=== PATIENT | male | born 1980 | race Caucasian/White ===

== ENCOUNTER 2021-04-14 11:25 | Emergency (ER) | payer MEDICAID, SELFPAY ==
[2021-04-14 11:53] VITALS: BP 154/91; PULSE 110; RESP 18; TEMP 37.2; O2SAT 95
--- NOTE | 2021-04-14 14:32 | W.ED.WOUNDLC ---
HPI - Wound/Laceration General: Chief Complaint: Wound/Laceration Stated Complaint: Right Hand Laceration Time Seen by Provider: 04/14/21 14:19 Source: patient Mode of arrival: ambulatory Limitations: no limitations History of Present Illness: HPI narrative: Patient is a 40-year-old male who presents to ED today with complaints of a right hand laceration that he sustained while moving a refrigerator. Patient states he cut it on a piece of metal. Last tetanus was within 5 years. Patient states that he irrigated it copiously before arrival. Onset (ago): hour(s) Extremity Location: Right: hand Place: work Patient tetanus UTD: Yes Context: accidental Associated symptoms: Reports no associated symptoms Treatments prior to arrival: other (Irrigation) Review of Systems Skin/Breast: Reports: other (Laceration to palm of right hand) Neuro: Denies: numbness in extremities or sensory changes Physical Exam Const: COMMON NORMALS: no acute distress and no limitations GENERAL APPEARANCE: anxious NUTRITIONAL APPEARANCE: overweight Extremity: OTHER: Patient has a 3.0 cm laceration to the distal palm of his right hand. There is no tendon involvement. Patient maintains full range of motion of his wrist and digits. Sensory intact. Patient is EXTREMELY anxious stated he has a huge needle phobia and asks we not suture if possible. Neuro: COMMON NORMALS: moves all extremities, no focal motor deficits and no sensory deficits noted Skin: NARRATIVE SKIN EXAM: See extremity assessment for pertinent skin findings Procedures Laceration Laceration 1: Site: hand Side (If applicable): right Size (cm): 3.0 Description: linear Depth: simple, single layer Local Anesthetic: lidocaine 1% and with epi Amount of anesthesia used (mL): 2.0 Pre-repair: wound explored and irrigated extensively Skin layer closed with: nylon Size (cm): 4-0 Number of sutures: 4 Technique: simple, interrupted Course Vital Signs: Vital signs: Vital Signs Temperature 99 F 04/14/21 11:53 Pulse Rate 110 H 04/14/21 11:53 Respiratory Rate 18 04/14/21 11:53 Blood Pressure 154/91 04/14/21 11:53 Pulse Oximetry 95 04/14/21 11:53 MDM - Wound/Laceration MDM Narrative: Medical decision making narrative: Laceration was gaping too much for me to recommend skin adhesive or Steri-Strips. I did recommend suturing. Again patient was extremely anxious and I spent an extended amount of time counseling and speaking to patient trying to calm him just to even provide local anesthetic. 4 sutures were able to be placed but he refused any others so wound was not fully closed. I was able to irrigate wound. Discharge Plan Discharge Patient Disposition: Home Clinical Impression: Laceration of right hand Qualifiers: Encounter type: initial encounter Foreign body presence: without foreign body Qualified Code(s): S61.411A - Laceration without foreign body of right hand, initial encounter Condition: Stable Discharge Orders: Discharge ED (Routine); Ordered 04/14/21 Ordered By: Bernice Santana Patient Instructions: Suture Care (ED), Laceration (ED) Activity Restrictions/Additional Instructions: Keep wound/laceration clean with warm soap and water twice daily. Monitor for signs of infection such as redness, swelling, increased pain, or drainage. Please seek medical re-evaluation if these occur. If you received sutures today these will need to be removed (unless you were told by the provider that they are absorbable). The provider should have discussed with you the length of time until removal-7 DAYS. You may return to the emergency department for this service. If your wound was closed with Steri-Strips or glue/adhesive these will fall off within the next week or so. Coding Level of Care Code ED Supervisor Microwave for Shawn Lee
[2021-04-14 16:38] VITALS: BP 146/69; PULSE 89; RESP 18; O2SAT 97
== END 2021-04-14 16:38 | disposition home or self-care (01) ==
PROVIDERS: Emergency Provider Physician Assistant
DX: S61.411A Laceration without foreign body of right hand, initial encounter (principal); W26.8XXA Contact with other sharp object(s), not elsewhere classified, initial encounter
CPT/HCPCS: 12002; 99282; A6446

== ENCOUNTER → 2021-08-28 10:50 | Outpatient (BNVA) | payer MEDICAID, SELFPAY | PROVIDERS: Visit Provider Nurse Practitioner Family | DX: Z20.822 Contact with and (suspected) exposure to COVID-19 (principal); Z20.828 Contact with and (suspected) exposure to other viral communicable diseases | CPT/HCPCS: 87635 ==

== ENCOUNTER 2021-11-01 03:32 | Emergency (ER) | payer MEDICAID, SELFPAY ==
[2021-11-01 03:33] VITALS: BP 151/98; PULSE 122; RESP 22; TEMP 36.3; O2SAT 94; BMI 28.7
--- NOTE | 2021-11-01 03:36 | CTR_ITS ---
PROCEDURE INFORMATION: Exam: CT Head Without Contrast Exam date and time: 11/01/2021 3:36 AM Age: 41 years old Clinical indication: Patient HX: Seizure this a. M. History of prior seizures. TECHNIQUE: Imaging protocol: Computed tomography of the head without contrast. Radiation optimization: All CT scans at this facility use at least one of these dose optimization techniques: automated exposure control; mA and/or kV adjustment per patient size (includes targeted exams where dose is matched to clinical indication); or iterative reconstruction. COMPARISON: CT head wo con* [id number] 02/17/2016 9:54 AM RADIATION DOSE METRICS: Total DLP (mGy-cm): 669.02 FINDINGS: Brain: Normal. No hemorrhage. Unremarkable white matter. No mass effect. Cerebral ventricles: No ventriculomegaly. Paranasal sinuses: Mild left maxillary sinus disease. Mastoid air cells: Visualized mastoid air cells are well aerated. Bones/joints: Unremarkable. No acute fracture. Soft tissues: Unremarkable. CT/CT head wo con* [id number] IMPRESSION: 1. Mild left maxillary sinus disease. 2. No acute intracranial findings.
--- NOTE | 2021-11-01 03:36 | W.ED.SEIZURE ---
HPI - Seizure General: Chief Complaint: Seizure Stated Complaint: seizure Time Seen by Provider: 11/01/21 03:36 Source: patient and EMS Mode of arrival: EMS Limitations: no limitations History of Present Illness: HPI Narrative: 41-year-old male has a history of seizures states he had a witnessed seizure tonight roughly an hour ago. He had fell on the floor to his head EMS states when they arrived he was still postictal but he is now awake and alert answering all my question appropriately states he is a mild headache denies any neck pain denies any worsening improving factors. He states that he believes that he did miss his Keppra dose today. Associated symptoms: Deny chest pain, chills or fever(s) Review of Systems Const: Denies: fever(s), chills, body aches or change in appetite Eyes: Denies: blurry vision or eye discomfort ENMT: Denies: throat pain or dental pain Card: Denies: chest pain Resp: Denies: dyspnea GI: Denies: abdominal pain, nausea, vomiting or diarrhea : Denies: dysuria Musc: Denies: neck pain or back pain Skin/Breast: Denies: rash Neuro: Reports: seizure-like activity Psych: Denies: depression Jose Luis/Lymph: Denies: easy bruising All/Imm: Denies: urticaria PFSH ED PFSH: Medical History Arthritis Migraine Seizures Family History (Updated 11/01/21 @ 03:37 by Ana Meza MD) Other Diabetes Physical Exam Const: COMMON NORMALS: no acute distress, patient oriented x3 and healthy appearing HENMT: COMMON NORMALS: normocephalic and atraumatic HEAD & SCALP: normocephalic and atraumatic Eye: COMMON NORMALS: Equal, round and reactive pupils present and EOMs intact bilaterally PUPIL: Yes Equal, round and reactive pupils present Neck/C-Spine: COMMON NORMALS: full ROM and supple Chest: COMMONS NORMALS: normal inspection of the chest and normal palpation of entire chest wall Resp: COMMON NORMALS: normal respiratory effort, No retractions, No use of accessory muscles and clear to auscultation bilaterally AUSCULTATION: clear to auscultation bilaterally Cardio: COMMON NORMALS: regular rate, regular rhythm and No murmurs present (Cardio) RATE: regular rate RHYTHM: regular rhythm GI: COMMON NORMALS: Normal to inspection, nondistended, normoactive bowel sounds present, Soft to palpation, non-tender and no masses PALPATION: Yes Soft to palpation Extremity: COMMON NORMALS: normal to inspection and full ROM Neuro: COMMON NORMALS: patient oriented x3, moves all extremities and no focal motor deficits Psych: COMMON NORMALS: mental status grossly normal, Normal thought process present and cooperative THOUGHT PROCESS: Normal thought process present Skin: COMMON NORMALS: no rashes or lesions noted and no wounds GENERAL SKIN EXAM: no rashes or lesions noted Course Vital Signs: Vital signs: Vital Signs Temperature 97.4 F L 11/01/21 03:33 Pulse Rate 122 H 11/01/21 03:33 Respiratory Rate 22 H 11/01/21 03:33 Blood Pressure 151/98 11/01/21 03:33 Pulse Oximetry 94 11/01/21 03:33 MDM - Seizure MDM Narrative Medical decision making narrative: Patient presents here with a generalized seizure. He is well-appearing here electrolytes and head CT are normal he is back to baseline did loaded with Keppra he is to follow-up with his neurologist as scheduled next month. Return if worsening. Lab Data Result diagrams: 11/01/21 03:16 Labs: Radiology Impressions Head CT 11/01/21 03:36 IMPRESSION: 1. Mild left maxillary sinus disease. 2. No acute intracranial findings. Laboratory Results Sodium 140 mmol/L (136-145) 11/01/21 03:16 Potassium 4.5 mmol/L (3.5-5.1) 11/01/21 03:16 Chloride 101 mmol/L (98-107) 11/01/21 03:16 Carbon Dioxide 18 mmol/L (22-29) L 11/01/21 03:16 Anion Gap 25.5 (5-19) H 11/01/21 03:16 BUN 16 mg/dL (6-20) 11/01/21 03:16 Creatinine 1.2 mg/dL (0.7-1.2) 11/01/21 03:16 GFR Calculation 66.1 mL/min (90-130) L 11/01/21 03:16 Glucose 206 mg/dL (65-115) H 11/01/21 03:16 Calculated Osmolality 297 mOsm/kg (285-295) H 11/01/21 03:16 Calcium 9.0 mg/dL (8.5-10.5) 11/01/21 03:[address] Head: Attestation: I personally reviewed and interpreted this imaging study as follows: Radiologist's impression: IMPRESSION: 1. Mild left maxillary sinus disease. 2. No acute intracranial findings. Discharge Plan Discharge Patient Disposition: Home Clinical Impression: Generalized seizure Condition: Stable Prescriptions: No Action No Known Home Medications 0RF Discharge Orders: Discharge ED (Routine); Ordered 11/01/21 Ordered By: Ana Meza Discharge Diet: Advance as tolerated Discharge Activity: Resume usual activity Patient Instructions: Recurrent Seizures in Adults (ED) Coding Level of Care Code ED Zoology Professor for Shawn Fwsue Exam Comprehensive
[2021-11-01] MEDS: LORazepam 2 mg/mL INJ 1 mL 1 MG IVP (03:53)
[2021-11-01 04:11] LABS: Blood Urea Nitrogen 16 mg/dL (6-20); Carbon Dioxide 18 mmol/L (22-29); Chloride 101 mmol/L (98-107); Glomerular Filtration Rate 66.1 mL/min (90-130); Glucose 206 mg/dL (65-115); Osmolality Calculated 297 mOsm/kg (285-295); Sodium 140 mmol/L (136-145)
[2021-11-01 04:15] LABS: Anion Gap 25.5 (5-19); Potassium 4.5 mmol/L (3.5-5.1)
[2021-11-01 05:02] VITALS: RESP 16
[2021-11-01] MEDS: morphine 4 mg/mL SDV 1 mL IVP (05:02)
== END 2021-11-01 05:11 | disposition home or self-care (01) ==
PROVIDERS: Emergency Provider Emergency Medicine
DX: G40.409 Other generalized epilepsy and epileptic syndromes, not intractable, without status epilepticus (principal)
CPT/HCPCS: 70450; 80048; 96374; 96375; 99284; J1953; J2060; J2270

== ENCOUNTER 2022-07-03 11:32 | Outpatient (CLI) | payer MEDICAID, SELFPAY ==
--- NOTE | 2022-07-03 11:42 | XR_ITS ---
WS: [id number] XR cervical spine 3V* [id number] REASON FOR EXAM: CHRONIC NECK PAIN FOR GREATER THAN 3 MONTHS FINDINGS: There is mild reversal of the upper lordosis of the cervical spine on the lateral view. The same curv ature of the cervical spine was seen on 03/21/2006 but is more exaggerated on the current study. The odontoid is normal. No significant abnormality of the vertebrae. There is 3 mm of anterolisthesis of C2 on C3 and 2.5 mm of anterolisthesis of C5 in relation to C4. XR/XR cervical spine 3V* [id number] IMPRESSION: Degenerative spondylosis of the cervical spine as above.
== END 2022-07-03 11:33 | disposition home or self-care (01) ==
PROVIDERS: Visit Provider Family Medicine
DX: G89.29 Other chronic pain (principal); M47.812 Spondylosis without myelopathy or radiculopathy, cervical region
CPT/HCPCS: 72040

== ENCOUNTER → 2022-07-23 13:49 | Outpatient (BNVA) | payer MEDICAID, SELFPAY | PROVIDERS: Visit Provider Physician Assistant | DX: M47.812 Spondylosis without myelopathy or radiculopathy, cervical region (principal); R20.0 Anesthesia of skin; R20.2 Paresthesia of skin | CPT/HCPCS: 72050; 99203; 99204 ==

== ENCOUNTER 2022-07-23 15:08 | Outpatient (CLI) | payer MEDICAID, SELFPAY | END 2022-07-23 15:09 | disposition home or self-care (01) | LOC: SPT 15:09 | PROVIDERS: Visit Provider Physician Assistant | DX: Z46.89 Encounter for fitting and adjustment of other specified devices (principal); R20.0 Anesthesia of skin; R20.2 Paresthesia of skin | CPT/HCPCS: 97760; 99203; L3908 ==

== ENCOUNTER → 2022-10-01 13:07 | Outpatient (BNVA) | payer MEDICAID, SELFPAY | PROVIDERS: Visit Provider Physician Assistant | DX: M47.812 Spondylosis without myelopathy or radiculopathy, cervical region (principal); M50.222 Other cervical disc displacement at C5-C6 level | CPT/HCPCS: 99213 ==

== ENCOUNTER → 2022-10-08 13:56 | Outpatient (BNVA) | payer MEDICAID, SELFPAY | PROVIDERS: Visit Provider Physician Assistant | DX: M51.36 Other intervertebral disc degeneration, lumbar region (principal); M43.16 Spondylolisthesis, lumbar region; M41.54 Other secondary scoliosis, thoracic region | CPT/HCPCS: 72072; 72100; 99213 ==

== ENCOUNTER → 2022-11-19 10:13 | Outpatient (BNVA) | payer MEDICAID, SELFPAY | PROVIDERS: Visit Provider Physician Assistant | DX: M43.16 Spondylolisthesis, lumbar region (principal); M51.36 Other intervertebral disc degeneration, lumbar region | CPT/HCPCS: 72120; 99213 ==

== ENCOUNTER → 2023-06-21 07:52 | Outpatient (BNVA) | payer MEDICAID, SELFPAY | PROVIDERS: Visit Provider Nurse Practitioner Family | DX: L74.0 Miliaria rubra (principal); D22.62 Melanocytic nevi of left upper limb, including shoulder; L57.8 Other skin changes due to chronic exposure to nonionizing radiation; L81.4 Other melanin hyperpigmentation | CPT/HCPCS: 99204 ==

== ENCOUNTER → 2024-06-21 07:56 | Outpatient (BNVA) | payer MEDICAID, SELFPAY | PROVIDERS: Visit Provider Nurse Practitioner Family | DX: L74.0 Miliaria rubra (principal); T38.3X5A Adverse effect of insulin and oral hypoglycemic [antidiabetic] drugs, initial encounter; X58.XXXA Exposure to other specified factors, initial encounter; L57.8 Other skin changes due to chronic exposure to nonionizing radiation; L81.4 Other melanin hyperpigmentation; L81.3 Cafe au lait spots; D22.62 Melanocytic nevi of left upper limb, including shoulder | CPT/HCPCS: 99213 ==

== ENCOUNTER → 2025-06-21 10:34 | Outpatient (BNVA) | payer MEDICAID, SELFPAY | PROVIDERS: Visit Provider Nurse Practitioner Family | DX: L23.9 Allergic contact dermatitis, unspecified cause (principal); L81.3 Cafe au lait spots; L57.8 Other skin changes due to chronic exposure to nonionizing radiation; L81.4 Other melanin hyperpigmentation; D22.5 Melanocytic nevi of trunk | CPT/HCPCS: 99214 ==

== ENCOUNTER → 2025-07-31 07:53 | Outpatient (BNVA) | payer MEDICAID, SELFPAY | PROVIDERS: Visit Provider Podiatrist Foot & Ankle Surgery | DX: E11.42 Type 2 diabetes mellitus with diabetic polyneuropathy (principal); M21.611 Bunion of right foot; M21.612 Bunion of left foot; M21.41 Flat foot [pes planus] (acquired), right foot; M21.42 Flat foot [pes planus] (acquired), left foot; M20.41 Other hammer toe(s) (acquired), right foot; M20.42 Other hammer toe(s) (acquired), left foot; Z79.84 Long term (current) use of oral hypoglycemic drugs | CPT/HCPCS: 99204 ==